=== PATIENT | male | born 1945 | race Caucasian/White ===

== ENCOUNTER → 2016-08-04 | Outpatient (CLI) | payer MEDICARE, OTHER ==
[~2016-08-04] MED LIST: ALBU8.5H5 INH; ASCO10007 PO; CYAN1TAB29 PO; DIPH25CA61 PO; ETID400T2 PO; FINA1TAB16 PO; GINK60CA2 PO; GLUC1CAP18 PO; HYDR-3138 PO; LOSA50TA6 PO; MV,M1TAB6 PO; UBID100C11 PO; VITA1CAP PO
[2016-08-04 15:53] LABS: PATH.CAST-FLAG NOT PRESENT; SPERM-FLAG NOT PRESENT; SRC-FLAG NOT PRESENT; XTAL-FLAG NOT PRESENT; YLC-FLAG NOT PRESENT
[2016-08-04 16:01] LABS: BLOOD UREA NITROGEN 21 mg/dL (7-18)
[2016-08-04 16:06] LABS: ASPARTATE AMINO TRANSFERASE 19 U/L (15-37)
== END | disposition home or self-care (01) ==
LOC: STAR 14:47
PROVIDERS: ATTEND Neurological Surgery
DX: Z01.818 Encounter for other preprocedural examination (principal); M54.16 Radiculopathy, lumbar region; R79.1 Abnormal coagulation profile
CPT/HCPCS: 36415; 80053; 81001; 85025; 85610; 85730; 87086; 93005

== ENCOUNTER 2016-08-17 11:46 | Day surgery (SDC) | payer MEDICARE, OTHER ==
[~2016-08-17] VITALS: Ht 188 cm; Wt 77.0 kg
[~2016-08-17 11:46] MED LIST changes: +BACITRACIN 50,000 UNIT ONE; +BUPIVACAINE/PF-EPI 0.5% 1:200K ONE; +FENTANYL PF 250 MCG/5ML ONE; +MIDAZOLAM 1 MG/ML, 2ML ONE; +THROMBIN 5,000 UNIT VIAL TP ONE
[2016-08-17] MEDS ORDERED: LACTATED RINGERS 1,000 ML IV SCH (12:35)
[2016-08-17 12:36] VITALS: BP 135/87
[2016-08-17] MEDS ORDERED: NEOSTIGMINE 1 MG/ML, 10ML ONE (13:59)
[2016-08-17] MEDS ORDERED: SUCCINYLCHOLINE 20 MG/ML, 10ML ONE (13:59)
[2016-08-17] MEDS ORDERED: CEFAZOLIN 1,000 MG ONE (13:59)
[2016-08-17] MEDS ORDERED: PROPOFOL 10 MG/ML, 20ML ONE (13:59)
[2016-08-17] MEDS ORDERED: NALOXONE 0.4 MG/ML, 1ML ONE (13:59)
[2016-08-17] MEDS ORDERED: GLYCOPYRROLATE 0.2MG/1ML ONE (13:59)
[2016-08-17] MEDS ORDERED: ONDANSETRON 2MG/ML, 2ML ONE (13:59)
[2016-08-17] MEDS ORDERED: DEXAMETHASONE 4 MG/ML, 1ML ONE (13:59)
[2016-08-17] MEDS ORDERED: ROCURONIUM 10 MG/ML ONE (13:59)
[2016-08-17] MEDS ORDERED: PHENYLEPHRINE 10 MG/ML ONE (13:59)
[2016-08-17] MEDS ORDERED: methylPREDNISolone SOD SUCC 125 MG/2 ML ONE (14:43)
[2016-08-17] MEDS ORDERED: FENTANYL PF 100 MCG/2ML IV PRN (15:30)
[2016-08-17] MEDS ORDERED: ONDANSETRON 2MG/ML, 2ML IVPush PRN (15:30)
[2016-08-17] MEDS ORDERED: ACETAMINOPHEN 325 MG TABLET PO PRN (15:30)
[2016-08-17] MEDS ORDERED: LABETALOL 5MG/ML, 20ML IV PRN (15:30)
[2016-08-17] MEDS ORDERED: METOCLOPRAMIDE 5 MG/ML, 2ML IV PRN (15:30)
[2016-08-17] MEDS ORDERED: MEPERIDINE/PF 25MG/0.5ML IVPush PRN (15:30)
[2016-08-17] MEDS ORDERED: OXYcodone 5 MG/5 ML ORAL.SOL UDC PO PRN (15:30)
[2016-08-17] MEDS ORDERED: hydrALAzine 20 MG/ML, 1ML IV PRN (15:30)
[2016-08-17] MEDS ORDERED: HYDROmorphone 1 MG/ML, 1ML IV PRN (15:30)
[2016-08-17] MEDS ORDERED: MIDAZOLAM 1 MG/ML, 2ML IV PRN (15:30)
[2016-08-17] MEDS ORDERED: PROMETHAZINE 25 MG/ML, 1ML IV PRN (15:30)
[2016-08-17] MEDS ORDERED: OXYcodone 5 MG/5 ML ORAL.SOL UDC ONE (16:10)
[2016-08-17] MEDS ORDERED: ACETAMINOPHEN 650 MG/20.3 ML UDC ONE (16:10)
[2016-08-17] MEDS ORDERED: ACETAMINOPHEN 325 MG TABLET ONE (16:10)
[2016-08-17] MEDS ORDERED: DIAZEPAM 5 MG TABLET PO ONE (17:30)
== END 2016-08-17 18:45 | disposition home or self-care (01) ==
LOC: OUT 11:46
PROVIDERS: ATTEND Neurological Surgery
DX: M48.07 Spinal stenosis, lumbosacral region (principal); M54.17 Radiculopathy, lumbosacral region; I10 Essential (primary) hypertension; J45.909 Unspecified asthma, uncomplicated; Z85.118 Personal history of other malignant neoplasm of bronchus and lung; Z98.890 Other specified postprocedural states; Z88.1 Allergy status to other antibiotic agents; Z90.79 Acquired absence of other genital organ(s); Z85.72 Personal history of non-Hodgkin lymphomas; Z82.49 Family history of ischemic heart disease and other diseases of the circulatory system
CPT/HCPCS: 63047; 63048; 72100; J0330; J0690; J1100; J2250; J2310; J2370; J2405; J2704; J2710; J2930; J3010; J7120; J3490

== ENCOUNTER → 2019-03-22 | Outpatient (CLI) | payer MEDICARE, OTHER ==
[~2019-03-22] MED LIST changes: +ASCO100019 PO; -ASCO10007 PO; -BACITRACIN 50,000 UNIT ONE; -BUPIVACAINE/PF-EPI 0.5% 1:200K ONE; -FENTANYL PF 250 MCG/5ML ONE; -HYDR-3138 PO; +HYDR-3237 PO; +LOSA25TA25 PO; +LOSA50TA14 PO; -LOSA50TA6 PO; -MIDAZOLAM 1 MG/ML, 2ML ONE; -THROMBIN 5,000 UNIT VIAL TP ONE; -UBID100C11 PO; +UBID100C41 PO
[2019-03-22 12:26] LABS: CULTURE INDICATED? NO; MICROSCOPIC AUTO
[2019-03-22 12:28] LABS: ALANINE AMINOTRANSFERASE 25 U/L (12-78); ALBUMIN 3.9 g/dL (3.4-5.0); ANION GAP 2 mmol/L (5-15); BASOPHILS # (AUTO) 0.04 x10^3/uL (0-0.1); BASOPHILS % (AUTO) 1 % (0-1); CALCIUM 9.2 mg/dL (8.5-10.1); CHLORIDE 108 mmol/L (98-107); CREATININE 1.04 mg/dL (0.7-1.3); EOSINOPHILS # (AUTO) 0.14 x10^3/uL (0-0.4); EOSINOPHILS % (AUTO) 4 % (1-7); LYMPHOCYTES # (AUTO) 1.41 x10^3/uL (1-3.4); LYMPHOCYTES % (AUTO) 38 % (22-44); MD NO; MEAN CORPUSCULAR HEMOGLOBIN 31.8 pg (27.5-34.5); MEAN CORPUSCULAR HGB CONC 33.6 g/dL (33.2-36.2); MEAN CORPUSCULAR VOLUME 94.7 fL (81-97); MEAN PLATELET VOLUME 8.9 fL (7.4-10.4); MONOCYTES # (AUTO) 0.35 x10^3/uL (0.2-0.8); MONOCYTES % (AUTO) 10 % (2-9); NEUTROPHILS # (AUTO) 1.77 x10^3/uL (1.8-6.8); NEUTROPHILS % (AUTO) 48 % (42-75); PLATELET COUNT 181 x10^3/uL (130-400); RED CELL DISTRIBUTION WIDTH 13.2 % (9.4-14.8)
[2019-03-22 12:31] LABS: ALKALINE PHOSPHATASE 74 U/L (45-117); BILIRUBIN,TOTAL 0.5 mg/dL (0.2-1.0); TOTAL PROTEIN 7.4 g/dL (6.4-8.2)
== END | disposition home or self-care (01) ==
LOC: STAR 11:03
PROVIDERS: ATTEND Orthopaedic Surgery
DX: Z01.818 Encounter for other preprocedural examination (principal); M17.11 Unilateral primary osteoarthritis, right knee
CPT/HCPCS: 36415; 80053; 81001; 85025; 87081; 87147; 87806; 93005; G0475

== ENCOUNTER 2019-04-01 05:44 | Inpatient (IN) | payer MEDICARE, OTHER ==
[~2019-04-01] VITALS: Ht 188 cm; Wt 75.8 kg
[2019-04-01] MEDS ORDERED: VANCOMYCIN PMX 1GM/200ML 200 ML IV STA (05:58)
[2019-04-01] MEDS ORDERED: LACTATED RINGERS 1,000 ML IV SCH (06:06)
[2019-04-01 06:15] VITALS: BP 143/81
[2019-04-01] MEDS ORDERED: morphine SULFATE/PF 1 MG/ML, 10ML ONE (06:33)
[2019-04-01] MEDS ORDERED: KETOROLAC 60 MG/2 ML ONE (06:33)
[2019-04-01] MEDS ORDERED: TRANEXAMIC ACID 100 MG/ML, 10ML ONE (06:33)
[2019-04-01] MEDS ORDERED: ROPIvacaine/PF 0.2%, 20 ML ONE (06:33)
[2019-04-01] MEDS ORDERED: BACITRACIN 50,000 UNIT ONE (06:34)
[2019-04-01] MEDS ORDERED: SODIUM CHLORIDE 0.9% 50 ML ONE (06:34)
[2019-04-01] MEDS ORDERED: EPINEPHRINE 1 MG/ML, 1ML ONE (06:34)
[2019-04-01] MEDS ORDERED: FENTANYL PF 250 MCG/5ML ONE (06:48)
[2019-04-01] MEDS ORDERED: LIDOCAINE-MPF 2% ,5ML ONE (07:12)
[2019-04-01] MEDS ORDERED: PROPOFOL 10 MG/ML, 20ML ONE (07:12)
[2019-04-01] MEDS ORDERED: CEFAZOLIN 1,000 MG ONE ×2 (07:15)
[2019-04-01] MEDS ORDERED: morphine SULFATE 10 MG/ML, 1ML IVPush PRN (08:00)
[2019-04-01] MEDS ORDERED: LORazepam 2 MG/ML, 1ML IVPush PRN (08:00)
[2019-04-01] MEDS ORDERED: ZOLPIDEM 5MG TABLET PO PRN (08:00)
[2019-04-01] MEDS ORDERED: DIPHENHYDRAMINE 50 MG CAPSULE PO PRN (08:00)
[2019-04-01] MEDS ORDERED: ONDANSETRON 2MG/ML, 2ML IVPush PRN (08:00)
[2019-04-01] MEDS ORDERED: GLYCOPYRROLATE 0.2MG/1ML, 5ML ONE (08:08)
[2019-04-01] MEDS ORDERED: SODIUM CHLORIDE 0.9% PF 10ML ONE (08:24)
[2019-04-01] MEDS ORDERED: OXYcodone 5 MG/5 ML ORAL.SOL UDC PO PRN (08:30)
[2019-04-01] MEDS ORDERED: HYDROmorphone 1 MG/ML, 1ML INJ IVPush PRN (08:30)
[2019-04-01] MEDS ORDERED: ONDANSETRON 2MG/ML, 2ML IV PRN (08:30)
[2019-04-01] MEDS ORDERED: MEPERIDINE/PF 25MG/ML,1ML IVPush PRN (08:30)
[2019-04-01] MEDS ORDERED: LABETALOL 5MG/ML, 20ML IV PRN (08:30)
[2019-04-01] MEDS ORDERED: EPHEDRINE 50 MG/ML, 1ML IVPush PRN (08:30)
[2019-04-01] MEDS ORDERED: PROMETHAZINE 25 MG/ML, 1ML IV PRN (08:30)
[2019-04-01] MEDS ORDERED: hydrALAzine 20 MG/ML, 1ML IV PRN (08:30)
[2019-04-01] MEDS ORDERED: METOPROLOL 1 MG/ML, 5ML ONE (09:22)
[2019-04-01] MEDS ORDERED: FENTANYL PF 100 MCG/2ML ONE ×3 (09:42→10:25)
[2019-04-01] MEDS ORDERED: OXYcodone 5 MG/5 ML ORAL.SOL UDC ONE (09:43)
[2019-04-01] MEDS: FENTANYL PF 100 MCG/2ML IV PRN ×5 (09:45→10:29)
[2019-04-01] MEDS ORDERED: HYDROmorphone 1 MG/ML, 1ML INJ ONE (10:25)
[2019-04-01] MEDS ORDERED: TRANEXAMIC ACID 1,000 MG in SODIUM CHLORIDE 0.9% 100 ML IV ONE (13:00)
[2019-04-01 13:15] VITALS: BP 126/76
[2019-04-01] MEDS: D5%-0.45% NACL 1,000 ML IV SCH ×2 (15:31→21:00)
[2019-04-01] MEDS: CEFAZOLIN PMX 2GM/50ML 50 ML IVPB SCH ×2 (15:31→23:34)
[2019-04-01] MEDS: OXYcodone/APAP 7.5/325MG TABLET PO PRN ×2 (16:22→20:34)
[2019-04-01 19:39] VITALS: BP 101/57
[2019-04-02 00:05] VITALS: BP 106/62
[2019-04-02] MEDS: D5%-0.45% NACL 1,000 ML IV SCH ×3 (02:16→22:00)
[2019-04-02] MEDS: ACETAMINOPHEN 325 MG TABLET PO PRN ×2 (03:18→09:39)
[2019-04-02] MEDS ORDERED: VANCOMYCIN PMX 1GM/200ML 200 ML IVPB ONE (06:30)
[2019-04-02 06:52] LABS: BASOPHILS # (AUTO) 0.01 x10^3/uL (0-0.1); BASOPHILS % (AUTO) 0 % (0-1); EOSINOPHILS # (AUTO) 0.01 x10^3/uL (0-0.4); EOSINOPHILS % (AUTO) 0 % (1-7); LYMPHOCYTES # (AUTO) 1.24 x10^3/uL (1-3.4); LYMPHOCYTES % (AUTO) 15 % (22-44); MD NO; MEAN CORPUSCULAR HEMOGLOBIN 31.9 pg (27.5-34.5); MEAN CORPUSCULAR HGB CONC 33.8 g/dL (33.2-36.2); MEAN CORPUSCULAR VOLUME 94.4 fL (81-97); MEAN PLATELET VOLUME 8.7 fL (7.4-10.4); MONOCYTES # (AUTO) 0.68 x10^3/uL (0.2-0.8); MONOCYTES % (AUTO) 8 % (2-9); NEUTROPHILS # (AUTO) 6.53 x10^3/uL (1.8-6.8); NEUTROPHILS % (AUTO) 77 % (42-75); PLATELET COUNT 139 x10^3/uL (130-400); RED BLOOD COUNT 3.79 x10^6/uL (4.38-5.82); RED CELL DISTRIBUTION WIDTH 12.8 % (9.4-14.8)
[2019-04-02 07:07] LABS: ANION GAP 4 mmol/L (5-15); CALCIUM 8.4 mg/dL (8.5-10.1); CHLORIDE 106 mmol/L (98-107); CREATININE 1.11 mg/dL (0.7-1.3)
[2019-04-02 07:08] LABS: ALANINE AMINOTRANSFERASE 13 U/L (12-78); ALBUMIN 2.8 g/dL (3.4-5.0)
[2019-04-02 07:11] LABS: ALKALINE PHOSPHATASE 53 U/L (45-117); TOTAL PROTEIN 5.5 g/dL (6.4-8.2); TROPONIN I < 0.015 ng/mL (0.000-0.045)
[2019-04-02 07:15] LABS: BILIRUBIN,TOTAL 0.5 mg/dL (0.2-1.0)
[2019-04-02 07:25] VITALS: BP 111/69
[2019-04-02] MEDS: ASPIRIN 325 MG TABLET EC PO SCH ×2 (07:49→17:26)
[2019-04-02] MEDS: CEFAZOLIN PMX 2GM/50ML 50 ML IVPB SCH (09:23)
[2019-04-02] MEDS: DOCUSATE 100 MG CAPSULE PO SCH ×3 (09:23→20:05)
[2019-04-02] MEDS ORDERED: hydrALAzine 20 MG/ML, 1ML IVPush PRN (12:00)
[2019-04-02] MEDS ORDERED: ONDANSETRON ODT 4 MG PO PRN (12:00)
[2019-04-02] MEDS ORDERED: PROMETHAZINE 25 MG/ML, 1ML IM PRN (12:00)
[2019-04-02] MEDS ORDERED: ONDANSETRON 2MG/ML, 2ML IVPush PRN (12:00)
[2019-04-02] MEDS ORDERED: ACETAMINOPHEN 325 MG TABLET PO PRN (12:00)
[2019-04-02] MEDS ORDERED: IBUPROFEN 600 MG TABLET PO PRN (12:00)
[2019-04-02] MEDS ORDERED: morphine SULFATE 10 MG/ML, 1ML IVPush PRN (12:00)
[2019-04-02] MEDS ORDERED: BISACODYL 10 MG SUPP PR PRN (12:00)
[2019-04-02] MEDS ORDERED: ALBUTEROL SULFATE 2.5 MG/3 ML NPPB PRN (12:30)
[2019-04-02 12:48] LABS: FREE T4 (FREE THYROXINE) 0.9 ng/dL (0.76-1.46)
[2019-04-02 13:00] VITALS: BP 123/64
[2019-04-02] MEDS: OXYcodone/APAP 7.5/325MG TABLET PO PRN ×2 (15:12→19:58)
[2019-04-02 18:08] LABS: MICROSCOPIC NOT IND
[2019-04-02 18:12] LABS: CULTURE INDICATED? NO
[2019-04-02 20:57] VITALS: BP 129/68
[2019-04-03 01:40] VITALS: BP 122/64
[2019-04-03] MEDS: ACETAMINOPHEN 325 MG TABLET PO PRN (02:46)
[2019-04-03 05:57] LABS: BASOPHILS # (AUTO) 0.02 x10^3/uL (0-0.1); BASOPHILS % (AUTO) 0 % (0-1); EOSINOPHILS # (AUTO) 0.03 x10^3/uL (0-0.4); EOSINOPHILS % (AUTO) 0 % (1-7); LYMPHOCYTES # (AUTO) 1.52 x10^3/uL (1-3.4); LYMPHOCYTES % (AUTO) 24 % (22-44); MD NO; MEAN CORPUSCULAR HEMOGLOBIN 32.4 pg (27.5-34.5); MEAN CORPUSCULAR HGB CONC 34.2 g/dL (33.2-36.2); MEAN CORPUSCULAR VOLUME 94.8 fL (81-97); MONOCYTES # (AUTO) 0.64 x10^3/uL (0.2-0.8); MONOCYTES % (AUTO) 10 % (2-9); NEUTROPHILS # (AUTO) 4.25 x10^3/uL (1.8-6.8); NEUTROPHILS % (AUTO) 66 % (42-75); PLATELET COUNT 131 x10^3/uL (130-400); RED BLOOD COUNT 3.93 x10^6/uL (4.38-5.82); RED CELL DISTRIBUTION WIDTH 13.1 % (9.4-14.8)
[2019-04-03 05:59] LABS: ALANINE AMINOTRANSFERASE 11 U/L (12-78); ANION GAP 5 mmol/L (5-15); CALCIUM 8.7 mg/dL (8.5-10.1); CHLORIDE 109 mmol/L (98-107); CREATININE 0.85 mg/dL (0.7-1.3)
[2019-04-03 06:05] LABS: ALKALINE PHOSPHATASE 53 U/L (45-117); BILIRUBIN,TOTAL 0.7 mg/dL (0.2-1.0); CHOL/HDL RATIO 2.1; CHOLESTEROL, TOTAL 147 mg/dL (140-239); HDL CHOL % 48 % (26-37); HDL CHOLESTEROL (DIRECT) 70 mg/dL (40-60); LDL CHOLESTEROL,CALCULATED 68 mg/dL (54-169); TRIGLYCERIDES 47 mg/dL (50-200); VLDL CHOLESTEROL 9 mg/dL (0-25)
[2019-04-03 06:29] VITALS: BP 145/78
[2019-04-03] MEDS: TAMSULOSIN 0.4 MG CAP.ER.24H PO SCH (10:15)
[2019-04-03] MEDS: ASPIRIN 325 MG TABLET EC PO SCH ×2 (10:16→18:48)
[2019-04-03] MEDS: DOCUSATE 100 MG CAPSULE PO SCH ×2 (10:16→20:33)
[2019-04-03] MEDS: OXYcodone/APAP 7.5/325MG TABLET PO PRN (10:48)
[2019-04-03 14:50] VITALS: BP 127/70
[2019-04-03 14:51] VITALS: BP_SYST 87; BP_SYST 89; BP_DIAS 56; BP_DIAS 57
[2019-04-03 18:38] VITALS: BP 118/69
[2019-04-03 21:22] VITALS: BP 116/58
[2019-04-04 00:05] VITALS: BP 137/77
[2019-04-04 06:45] VITALS: BP 145/76
[2019-04-04] MEDS: ASPIRIN 325 MG TABLET EC PO SCH ×2 (09:24→18:01)
[2019-04-04] MEDS: DOCUSATE 100 MG CAPSULE PO SCH ×2 (09:24→20:58)
[2019-04-04] MEDS: TAMSULOSIN 0.4 MG CAP.ER.24H PO SCH (09:24)
[2019-04-04] MEDS: POLYETHYLENE GLYCOL 17 GM PACKET PO PRN (09:36)
[2019-04-04 13:32] VITALS: BP 100/61
[2019-04-04] MEDS: OXYcodone/APAP 7.5/325MG TABLET PO PRN (13:44)
[2019-04-04 19:33] VITALS: BP 147/77
[2019-04-04 19:35] VITALS: BP_SYST 122; BP_SYST 124; BP_DIAS 59; BP_DIAS 77
[2019-04-05 01:00] VITALS: BP 146/84
[2019-04-05 07:51] VITALS: BP 138/86
[2019-04-05] MEDS: DOCUSATE 100 MG CAPSULE PO PRN ×2 (09:13→20:29)
[2019-04-05] MEDS: POLYETHYLENE GLYCOL 17 GM PACKET PO PRN (09:13)
[2019-04-05] MEDS: TAMSULOSIN 0.4 MG CAP.ER.24H PO SCH (09:13)
[2019-04-05] MEDS: ASPIRIN 325 MG TABLET EC PO SCH ×2 (09:13→17:33)
[2019-04-05] MEDS: DOCUSATE 100 MG CAPSULE PO SCH ×2 (09:13→20:28)
[2019-04-05] MEDS: OXYcodone/APAP 7.5/325MG TABLET PO PRN (10:21)
[2019-04-05 12:59] VITALS: BP 136/77
[2019-04-05 13:00] VITALS: BP_SYST 101; BP_SYST 139; BP_DIAS 66; BP_DIAS 77
[2019-04-05] MEDS: NAPROXEN 250 MG TABLET PO SCH (17:33)
[2019-04-05 19:15] VITALS: BP 125/72
[2019-04-05 19:19] VITALS: BP 121/69
[2019-04-06 01:15] VITALS: BP 129/83
[2019-04-06 07:56] VITALS: BP 124/74
[2019-04-06] MEDS: ASPIRIN 325 MG TABLET EC PO SCH (08:08)
[2019-04-06] MEDS: DOCUSATE 100 MG CAPSULE PO SCH (08:08)
[2019-04-06] MEDS: NAPROXEN 250 MG TABLET PO SCH (08:08)
[2019-04-06] MEDS: TAMSULOSIN 0.4 MG CAP.ER.24H PO SCH (08:08)
[2019-04-06] MEDS ORDERED: ZOLP-413 PO (11:15)
[2019-04-06] MEDS ORDERED: NAPR250T6 PO (11:15)
[2019-04-06] MEDS ORDERED: ACET325T26 PO (11:15)
[2019-04-06] MEDS ORDERED: OXYcodone/APAP 7.5/325MG PO (11:15)
[2019-04-06] MEDS ORDERED: TAMS-11 PO (11:15)
[2019-04-06 12:37] VITALS: BP 128/76
== END 2019-04-06 14:20 | DRG 312 ==
LOC: OUT 05:44 → 4NE 11:25 → OUT 22:35 → 4EST 04-02 08:12 → OBSVTOIN 04-03 15:59
PROVIDERS: ADMIT Orthopaedic Surgery; ATTEND Family Medicine
DX: R55 Syncope and collapse (principal); I50.30 Unspecified diastolic (congestive) heart failure; M17.11 Unilateral primary osteoarthritis, right knee; D64.9 Anemia, unspecified; R33.8 Other retention of urine; I11.0 Hypertensive heart disease with heart failure; J45.909 Unspecified asthma, uncomplicated; N20.0 Calculus of kidney; N40.1 Benign prostatic hyperplasia with lower urinary tract symptoms; Z87.442 Personal history of urinary calculi; Z90.79 Acquired absence of other genital organ(s); Z88.8 Allergy status to other drugs, medicaments and biological substances; Z79.899 Other long term (current) drug therapy
CPT/HCPCS: 36415; 71045; 80053; 80061; 81003; 83036; 83735; 84439; 84443; 84484; 85018; 85025; 93005; 93306; 93356; C1713; G0378; J0171; J0690; J1885; J2274; J2704; J2795; J3010; J3370; C1776

== ENCOUNTER → 2020-04-01 | Outpatient (CLI) | payer MEDICARE, OTHER ==
[~2020-04-01] MED LIST changes: +ACET325T26 PO; +NAPR250T6 PO; +OXYcodone/APAP 7.5/325MG PO; +TAMS-11 PO; +ZOLP-413 PO
== END | disposition home or self-care (01) ==
LOC: CFH 12:52
PROVIDERS: ATTEND Internal Medicine Cardiovascular Disease
DX: I25.10 Atherosclerotic heart disease of native coronary artery without angina pectoris (principal); I10 Essential (primary) hypertension
CPT/HCPCS: 78452; 93017; A9502